=== PATIENT | female | born 2000 | race Caucasian/White ===

== ENCOUNTER 2021-05-29 16:20 | Emergency (ER) | payer SELFPAY ==
[2021-05-29] MEDS ORDERED: Ondansetron 4 MG/2 ML SDV IVPUSH ONE (16:59)
[2021-05-29] MEDS ORDERED: Sodium Chloride 0.9% 10 ML Syringe FLUSH PRN (16:59)
[2021-05-29] MEDS ORDERED: Ketorolac 30 MG/ML SDV IVPUSH ONE (16:59)
[2021-05-29] MEDS ORDERED: Sodium Chloride 0.9% 2.5 ML Syringe FLUSH PRN (16:59)
[2021-05-29] MEDS ORDERED: Sodium Chloride 0.9% 1,000 ML IV ONE (16:59)
--- NOTE | 2021-05-29 17:01 | EDM.PDOC ---
ED HPI GENERAL MEDICAL PROBLEM - General Chief Complaint: Abdominal Pain Stated Complaint: ABDOMINAL PAIN Time Seen by Provider: 05/29/21 16:39 Source of Information: Reports: Patient History Limitations: Reports: No Limitations - History of Present Illness INITIAL COMMENTS - FREE TEXT/NARRATIVE: HISTORY AND PHYSICAL: History of present illness: The patient is a 21-year-old female who presents to the emergency room with complaints of lower to generalized abdominal pain that started on Monday. Patient states that she completed her menses last . The patient states that she is very irregular and had 2 menstrual cycles last month. The patient states that her pain is not like her normal menstrual cramps. Patient states that when she is lying down her muscles feel tight and when she is walking there is a stabbing pain. The patient spoke with her doctor who suggested a probiotic which she felt only made the pain worse. She has not tried Tylenol or Motrin. He states that her stools have been liquid recently and hard to push out. She has been eating and drinking without difficulty, however she does state that she has some nausea today. Patient states that when she is sitting upright or leans forward she has increased pain. Patient denies any fever, chills, headache, change in vision, syncope or near syncope. Denies any chest pain, back pain, shortness of breath or cough. Denies any vomiting, diarrhea, constipation or dysuria. Has not noted any blood in urine or stool. Patient has been eating and drinking appropriately. Review of systems: As per history of present illness and below otherwise all systems reviewed and negative. Past medical history: As per history of present illness and as reviewed below otherwise noncontributory. Surgical history: As per history of present illness and as reviewed below otherwise noncontributory. Social history: See social history for further information Family history: As per history of present illness and as reviewed below otherwise noncontributory. Physical exam: General: Well developed and well nourished. Alert and orientated x 3. Nontoxic in appearance and in no acute distress. Vital signs are stable and have been reviewed by me. Nursing notes were reviewed. HEENT: Atraumatic, normocephalic, pupils equal and reactive bilaterally, negative for conjunctival pallor or scleral icterus, mucous membranes moist, TMs normal bilaterally, throat clear, neck supple, nontender, trachea midline. No drooling or trismus noted. No meningeal signs. No hot potato voice noted. Lungs: Clear to auscultation bilaterally. No wheezes, rales, or rhonchi. Chest nontender. Normal work of breathing, no accessory muscles used. Heart: S1S2, regular rate and rhythm without overt murmur, gallops, or rubs. No JVD. No peripheral edema Abdomen: Soft, nondistended, generalized tenderness. Normoactive bowel sounds. Negative for masses or costovertebral tenderness. Skin: Intact, warm, dry. No lesions or rashes noted. Hematologic: No petechiae or purpra. Mucosa appropriate color and normal nail bed color and refill. Extremities: Atraumatic, moves all extremities per self without difficulty or deficits, negative for cords or calf pain. Neurovascular unremarkable. Neuro: Awake, alert, oriented. Cranial nerves II through XII unremarkable. Cerebellum unremarkable. Motor and sensory unremarkable throughout. Exam nonfocal. Psychiatric: Mood and affect are appropriate. Normal thought process. Answering questions appropriately. Notes: *This patient was seen and evaluated during the 2019 SARS-CoV-2 novel coronavirus pandemic period. Community viral transmission is ongoing at time of this encounter and the emergency department is operating under pandemic response procedures. As stated above the patient is a 21-year-old female who presents to the emergency department for complaints of abdominal pain that started on Monday. The patient states that this pain is not like her menstrual cycle pain. The patient did speak with her provider who recommended a probiotic due to her liquid stools. Patient states that she felt like this made the situation worse. Upon palpation of the abdomen the patient stated that she had generalized pain everywhere. The patient denies any urinary symptoms such as dysuria. The patient states that she does not feel as she could be . I will do an abdominal work-up to include CBC, CMP, lipase, urine hCG, urinalysis, abdominal CT. We will treat the patient with IV fluids, Toradol, and Zofran. The patient is agreeable with this plan. The patient CBC & CMP are unremarkable. The patient's urine is positive for occult blood, leukocyte esterase, and 1+ bacteria. Abdomen/pelvis CT Impression: 1. No acute findings are seen to explain abdominal pain. 2. Normal caliber appendix. No calcified appendicolith or periappendiceal inflammatory changes. 3. Symmetric nephrograms. No striated nephrogram, hydronephrosis, or perinephric fluid collection. 4. Normal caliber biliary tree. The patient's work-up is unremarkable except for a appearing urinary tract infection. I will treat the patient with nitrofurantoin 100 mg p.o. twice daily for 5 days. I have educated the patient on urinary tract infection and advised her to follow- up with her primary care. I have educated patient on when she needs to return to the emergency department. Patient is agreeable with this discharge plan. I have talked with the patient about today's findings, in addition to providing specific details for plan of care. Reassessment at the time of disposition demonstrates that the patient is in no acute distress. The patient is stable for discharge, counseling was provided and we discussed in great detail signs and symptoms that would prompt them to return to the Emergency Department. Medication, follow up and supportive care measures were reviewed and discussed. Voices understanding and is agreeable to plan of care. Denies any further questions or concerns at this time. Diagnostics:CBC, CMP, lipase, urine hCG, urinalysis, abdominal/pelvis CT Therapeutics: IV fluids, Toradol, Zofran Prescription:nitrofurantoin 100 mg by mouth twice a day for 5 days Impression: Abdominal pain, UTI Plan: 1. You were evaluated today on an emergent basis. Your lower abdominal pain was evaluated with blood work which was normal and a abdominal/pelvis CT which did not show any abnormalities. Your urine had 1+ bacteria, leuko-Estrace, and blood. I will treat you for a urinary tract infection with nitrofurantoin 100 mg by mouth twice a day for 5 days. You were given your first dose of nitrofurantoin in the emergency department. I sent your medications to [facility] in [facility]. I would follow-up with your primary care to ensure resolution of the urinary tract infection. If you continue to have abdominal pain you again would need to follow-up with your primary care for more definitive testing. Just drink adequate fluids. You do not need to go overboard but you do need to get adequate fluids intake. 2. You can alternate Tylenol and ibuprofen as needed for pain and fever management. 3. We encourage you to follow up with your primary care provider and/or recommended specialist in the next few days for re-evaluation and further care/management. 4. If your symptoms should worsen, new symptoms develop or any of the signs and symptoms we discussed should arise please return to the emergency room or call 911 (if needed). Definitive disposition and diagnosis as appropriate pending reevaluation and review of above. Bilateral Lower Abdomen Pain Score (Numeric/FACES): 5 - Related Data Allergies Allergy/AdvReac Type Severity Reaction Status Date / Time No Known Allergies Allergy Verified 05/29/21 16:54 Home Meds: Home Meds nitrofurantoin macrocrystaL [Nitrofurantoin] 100 mg PO BID 5 Days #9 capsule 05/29/21 [Rx] ED ROS GENERAL - Review of Systems Review Of Systems: Comprehensive ROS is negative, except as noted in HPI. ED EXAM, GI/ABD - Physical Exam Exam: See Below (See dictation) Course - Vital Signs Last Recorded V/S: Last Vital Signs Temp 97.8 F 05/29/21 16:55 Pulse 91 05/29/21 16:55 Resp 18 05/29/21 16:55 BP 127/75 05/29/21 16:55 Pulse Ox 97 05/29/21 16:55 - Orders/Labs/Meds Orders: Active Orders 24 hr Category Date Time Status CULTURE URINE [MREF] Stat Lab 05/29/21 17:08 Received Sodium Chloride 0.9% [Saline Flush] Med 05/29/21 16:59 Active 10 ml FLUSH ASDIRECTED PRN Sodium Chloride 0.9% [Saline Flush] Med 05/29/21 16:59 Active 2.5 ml FLUSH ASDIRECTED PRN Saline Lock Insert [OM.PC] Stat Oth 05/29/21 16:59 Ordered Medication Orders Sodium Chloride (Sodium Chloride 0.9% 10 Ml Syringe) 10 ml FLUSH ASDIRECTED PRN PRN Reason: Keep Vein Open Last Admin: 05/29/21 17:53 Dose: 10 ml Documented by: [place] Sodium Chloride (Sodium Chloride 0.9% 2.5 Ml Syringe) 2.5 ml FLUSH ASDIRECTED PRN PRN Reason: Keep Vein Open Last Admin: 05/29/21 17:53 Dose: 2.5 ml Documented by: [place] Labs: Laboratory Tests 05/29/21 05/29/21 05/29/21 Range/Units 17:08 17:08 17:35 WBC 8.55 (4.0-11.0) K/uL RBC 4.56 (4.30-5.90) M/uL Hgb 13.1 (12.0-16.0) g/dL Hct 38.9 (36.0-46.0) % MCV 85.3 (80.0-98.0) fL MCH 28.7 (27.0-32.0) pg MCHC 33.7 (31.0-37.0) g/dL RDW Std Deviation 39.5 (28.0-62.0) fl RDW Coeff of Mary Kay 13 (11.0-15.0) % Plt Count 314 (150-400) K/uL MPV 9.60 (7.40-12.00) fL Neut % (Auto) 70.7 (48.0-80.0) % Lymph % (Auto) 21.2 (16.0-40.0) % Pierce % (Auto) 6.4 (0.0-15.0) % Eos % (Auto) 1.6 (0.0-7.0) % Baso % (Auto) 0.1 (0.0-1.5) % Neut # (Auto) 6.0 H (1.4-5.7) K/uL Lymph # (Auto) 1.8 (0.6-2.4) K/uL Pierce # (Auto) 0.6 (0.0-0.8) K/uL Eos # (Auto) 0.1 (0.0-0.7) K/uL Baso # (Auto) 0.0 (0.0-0.1) K/uL Nucleated RBC % 0.0 /100WBC Nucleated RBCs # 0 K/uL Sodium (136-145) mmol/L Potassium (3.5-5.1) mmol/L Chloride (98-107) mmol/L Carbon Dioxide (21.0-32.0) mmol/L BUN (7.0-18.0) mg/dL Creatinine (0.6-1.0) mg/dL Est Cr Clr Drug Dosing mL/min Estimated GFR (MDRD) ml/min Glucose (74-106) mg/dL Calcium (8.5-10.1) mg/dL Total Bilirubin (0.2-1.0) mg/dL AST (15-37) IU/L ALT (14-63) IU/L Alkaline Phosphatase (46-116) U/L Total Protein (6.4-8.2) g/dL Albumin (3.4-5.0) g/dL Globulin (2.6-4.0) g/dL Albumin/Globulin Ratio (0.9-1.6) Lipase (73-393) U/L Urine Color YELLOW Urine Appearance SLT CLOUDY Urine pH 6.5 (5.0-8.0) Ur Specific Edwards 1.025 (1.001-1.035) Urine Protein NEGATIVE (NEGATIVE) mg/dL Urine Glucose (UA) NEGATIVE (NEGATIVE) mg/dL Urine Ketones NEGATIVE (NEGATIVE) mg/dL Urine Occult Blood TRACE-INTACT H (NEGATIVE) Urine Nitrite NEGATIVE (NEGATIVE) Urine Bilirubin NEGATIVE (NEGATIVE) Urine Urobilinogen 0.2 (<2.0) EU/dL Ur Leukocyte Esterase SMALL H (NEGATIVE) Urine RBC 0-3 (0-2/HPF) Urine WBC 1-5 (0-5/HPF) Ur Epithelial Cells FEW (NONE-FEW) Urine Bacteria 1+ H (NEGATIVE) Urine HCG, Qual NEGATIVE (NEGATIVE) 05/29/21 Range/Units 17:35 WBC (4.0-11.0) K/uL RBC (4.30-5.90) M/uL Hgb (12.0-16.0) g/dL Hct (36.0-46.0) % MCV (80.0-98.0) fL MCH (27.0-32.0) pg MCHC (31.0-37.0) g/dL RDW Std Deviation (28.0-62.0) fl RDW Coeff of Mary Kay (11.0-15.0) % Plt Count (150-400) K/uL MPV (7.40-12.00) fL Neut % (Auto) (48.0-80.0) % Lymph % (Auto) (16.0-40.0) % Pierce % (Auto) (0.0-15.0) % Eos % (Auto) (0.0-7.0) % Baso % (Auto) (0.0-1.5) % Neut # (Auto) (1.4-5.7) K/uL Lymph # (Auto) (0.6-2.4) K/uL Pierce # (Auto) (0.0-0.8) K/uL Eos # (Auto) (0.0-0.7) K/uL Baso # (Auto) (0.0-0.1) K/uL Nucleated RBC % /100WBC Nucleated RBCs # K/uL Sodium 137 (136-145) mmol/L Potassium 3.5 (3.5-5.1) mmol/L Chloride 103 (98-107) mmol/L Carbon Dioxide 29.5 (21.0-32.0) mmol/L BUN 9 (7.0-18.0) mg/dL Creatinine 0.8 (0.6-1.0) mg/dL Est Cr Clr Drug Dosing 87.98 mL/min Estimated GFR (MDRD) > 60.0 ml/min Glucose 84 (74-106) mg/dL Calcium 8.5 (8.5-10.1) mg/dL Total Bilirubin 0.4 (0.2-1.0) mg/dL AST 17 (15-37) IU/L ALT 63 (14-63) IU/L Alkaline Phosphatase 76 (46-116) U/L Total Protein 7.9 (6.4-8.2) g/dL Albumin 3.4 (3.4-5.0) g/dL Globulin 4.5 H (2.6-4.0) g/dL Albumin/Globulin Ratio 0.8 L (0.9-1.6) Lipase 95 (73-393) U/L Urine Color Urine Appearance Urine pH (5.0-8.0) Ur Specific Edwards (1.001-1.035) Urine Protein (NEGATIVE) mg/dL Urine Glucose (UA) (NEGATIVE) mg/dL Urine Ketones (NEGATIVE) mg/dL Urine Occult Blood (NEGATIVE) Urine Nitrite (NEGATIVE) Urine Bilirubin (NEGATIVE) Urine Urobilinogen (<2.0) EU/dL Ur Leukocyte Esterase (NEGATIVE) Urine RBC (0-2/HPF) Urine WBC (0-5/HPF) Ur Epithelial Cells (NONE-FEW) Urine Bacteria (NEGATIVE) Urine HCG, Qual (NEGATIVE) Meds: Medications Generic Name Dose Route Start Last Admin Trade Name Freq PRN Reason Stop Dose Admin Sodium Chloride 10 ml 05/29/21 16:59 05/29/21 17:53 Sodium Chloride 0.9% 10 Ml Syringe FLUSH 10 ml ASDIRECTED PRN Administration Keep Vein Open Sodium Chloride 2.5 ml 05/29/21 16:59 05/29/21 17:53 Sodium Chloride 0.9% 2.5 Ml Syringe FLUSH 2.5 ml ASDIRECTED PRN Administration Keep Vein Open Discontinued Medications Generic Name Dose Route Start Last Admin Trade Name Prabhuq PRN Reason Stop Dose Admin Sodium Chloride 1,000 mls @ 999 mls/hr 05/29/21 16:59 05/29/21 17:53 Normal Saline IV 05/29/21 17:59 999 mls/hr BOLUS ONE Administration Iopamidol 100 ml 05/29/21 18:30 05/29/21 18:31 Iopamidol 755 Mg/Ml 500 Ml Multipack Bottle IVPUSH 05/29/21 18:31 100 ml ONETIME ONE Administration Ketorolac Tromethamine 30 mg 05/29/21 16:59 05/29/21 17:53 Ketorolac 30 Mg/Ml Sdv IVPUSH 05/29/21 17:00 30 mg ONETIME ONE Administration Nitrofurantoin Macrocrystals 100 mg 05/29/21 19:05 Nitrofurantoin Macrocrystal 50 Mg Cap PO 05/29/21 19:06 ONETIME STA Ondansetron HCl 4 mg 05/29/21 16:59 05/29/21 17:53 Ondansetron 4 Mg/2 Ml Sdv IVPUSH 05/29/21 17:00 4 mg ONETIME ONE Administration Departure - Departure Time of Disposition: 19:10 Disposition: Home, Self-Care 01 Condition: Good Clinical Impression: Abdominal pain Qualifiers: Abdominal location: generalized Qualified Code(s): R10.84 - Generalized abdominal pain UTI (urinary tract infection) Qualifiers: Urinary tract infection type: acute cystitis Hematuria presence: without hematuria Qualified Code(s): N30.00 - Acute cystitis without hematuria - Discharge Information *PRESCRIPTION DRUG MONITORING PROGRAM REVIEWED*: Not Applicable *COPY OF PRESCRIPTION DRUG MONITORING REPORT IN PATIENT ELIAZAR: Not Applicable Prescriptions: nitrofurantoin macrocrystaL [Nitrofurantoin] 100 mg PO BID 5 Days #9 capsule Instructions: Abdominal Pain, Adult, Ujid-ne-Aehb, Urinary Tract Infection, Adult Referrals: PCP,None [Primary Care Provider] - Forms: ED Department Discharge Additional Instructions: The following information is given to patients seen in the emergency department who are being discharged to home. This information is to outline your options for follow-up care. We provide all patients seen in our emergency department with a follow-up referral. The need for follow-up, as well as the timing and circumstances, are variable depending upon the specifics of your emergency department visit. If you don't have a primary care physician on staff, we will provide you with a referral. We always advise you to contact your personal physician following an emergency department visit to inform them of the circumstance of the visit and for follow-up with them and/or the need for any referrals to a consulting specialist. The emergency department will also refer you to a specialist when appropriate. This referral assures that you have the opportunity for follow-up care with a specialist. All of these measure are taken in an effort to provide you with optimal care, which includes your follow-up. Under all circumstances we always encourage you to contact your private physician who remains a resource for coordinating your care. When calling for follow-up care, please make the office aware that this follow-up is from your recent emergency room visit. If for any reason you are refused follow-up, please contact the [facility] Emergency Department at and asked to speak to the emergency department charge nurse. [facility] - Primary Care [address] [place] [id number] [address] [address] Plan: 1. You were evaluated today on an emergent basis. Your lower abdominal pain was evaluated with blood work which was normal and a abdominal/pelvis CT which did not show any abnormalities. Your urine had 1+ bacteria, leuko-Estrace, and blood. I will treat you for a urinary tract infection with nitrofurantoin 100 mg by mouth twice a day for 5 days. You were given your first dose of nitrofurantoin in the emergency department. I sent your medications to [facility] in [facility]. I would follow-up with your primary care to ensure resolution of the urinary tract infection. If you continue to have abdominal pain you again would need to follow-up with your primary care for more definitive testing. Just drink adequate fluids. You do not need to go overboard but you do need to get adequate fluids intake. 2. You can alternate Tylenol and ibuprofen as needed for pain and fever management. 3. We encourage you to follow up with your primary care provider and/or recommended specialist in the next few days for re-evaluation and further care/management. 4. If your symptoms should worsen, new symptoms develop or any of the signs and symptoms we discussed should arise please return to the emergency room or call 911 (if needed). - My Orders Last 24 Hours: My Active Orders 05/29/21 16:59 Sodium Chloride 0.9% [Saline Flush] 10 ml FLUSH ASDIRECTED PRN Sodium Chloride 0.9% [Saline Flush] 2.5 ml FLUSH ASDIRECTED PRN Saline Lock Insert [OM.PC] Stat 05/29/21 17:08 CULTURE URINE [MREF] Stat - Assessment/Plan Last 24 Hours: My Active Orders 05/29/21 16:59 Sodium Chloride 0.9% [Saline Flush] 10 ml FLUSH ASDIRECTED PRN Sodium Chloride 0.9% [Saline Flush] 2.5 ml FLUSH ASDIRECTED PRN Saline Lock Insert [OM.PC] Stat 05/29/21 17:08 CULTURE URINE [MREF] Stat
--- NOTE | 2021-05-29 18:02 | CT ---
Indication: Abdominal pain. Technique: CT of the abdomen and pelvis. 100 cc of Isovue 370 IV. Coronal/sagittal reconstruction images. Comparison: None. Findings: Lung bases: There is no pleural or pericardial effusion. The heart size is normal. There is no acute airspace disease. There is no basilar pneumothorax or suspicious pulmonary nodule. Abdomen/pelvis: Liver morphology is non cirrhotic. No solid hepatic mass. No perihepatic ascites. Focal fat deposition near the fissure for the falciform ligament. No inflammatory changes adjacent to the gallbladder. There is no pancreatic mass, pancreatic duct dilation, or glandular atrophy. There is no adrenal mass. There is no hydronephrosis. There is no perinephric inflammatory changes. No striated nephrogram. Spleen size is normal. No adnexal mass. Uterine corpus is within normal limits. There is no evidence of a small bowel or colonic obstruction. There is no mucosal hyper enhancement. There is no perienteric edema. There is no evidence for appendicitis. The appendix measures 7 millimeters in luminal dimension common is filled with gas. No calcified appendicolith. No inguinal or pelvic sidewall lymphadenopathy. The retroperitoneum and gastrohepatic ligament are normal. No abdominal aortic aneurysm. Visceral artery branches are patent. Renal veins are patent. The bone windows demonstrate no suspicious bone lesions. The vertebral body heights are maintained on sagittal reconstruction images. Pars interarticularis defects are noted at L5. This is seen best on image 85, series 204. There is no significant anterolisthesis. Impression: 1. No acute findings are seen to explain abdominal pain. 2. Normal caliber appendix. No calcified appendicolith or periappendiceal inflammatory changes. 3. Symmetric nephrograms. No striated nephrogram, hydronephrosis, or perinephric fluid collection. 4. Normal caliber biliary tree. Please note that all CT scans at this facility use dose modulation, iterative reconstruction, and/or weight-based dosing when appropriate to reduce radiation dose to as low as reasonably achievable. Dictated by Arnulfo Dejesus MD @ 05/29/2021 6:00:43 PM (Electronically Signed)
[2021-05-29 18:09] LABS: BLOOD UREA NITROGEN,BUN 9 mg/dL (7.0-18.0); CARBON DIOXIDE,CO2 29.5 mmol/L (21.0-32.0); CHLORIDE,CL 103 mmol/L (98-107); GLUCOSE RANDOM 84 mg/dL (74-106); LIPASE 95 U/L (73-393); POTASSIUM,K 3.5 mmol/L (3.5-5.1); SODIUM,NA 137 mmol/L (136-145)
[2021-05-29] MEDS ORDERED: Iopamidol 755 MG/ML 500 ML Multipack Bottle IVPUSH ONE (18:30)
[2021-05-29] MEDS ORDERED: Nitrofurantoin Macrocrystal 50 MG Cap PO STA (19:05)
== END 2021-05-29 22:40 | disposition home or self-care (01) ==
LOC: MW.ED 16:20
DX: N30.00 Acute cystitis without hematuria (principal)
CPT/HCPCS: 36415; 74177; 80053; 81001; 81025; 83690; 85025; 87086; 96374; 96375; 99284; J1885; J2405; J7030; Q9967